=== PATIENT | male | born 2005 | race Caucasian/White ===

== ENCOUNTER 2025-05-19 06:02 | Emergency (ER) | payer OTHER ==
[~2025-05-19] VITALS: Ht 180.3 cm; Wt 59.0 kg
[2025-05-19 06:16] VITALS: O2SAT 97
[2025-05-19 07:02] VITALS: BP 103/54; PULSE 73; RESP 16; TEMP 36.9; O2SAT 99
== END 2025-05-19 07:09 ==
LOC: ER 06:26
DX: Z02.89 Encounter for other administrative examinations (principal); Z65.3 Problems related to other legal circumstances
CPT/HCPCS: 99283